=== PATIENT | male | born 1955 | race Caucasian/White ===

== ENCOUNTER 2017-03-12 23:35 | Inpatient (IN) | payer BC ==
[~2017-03-12] VITALS: Ht 177.8 cm; Wt 89.3 kg
[~2017-03-12 23:35] MED LIST: AMLO-114 PO; CARV6.252 PO; DOXA1TAB86 PO; FENO145T26 PO; HYDR25TA4 PO; LISI-792 PO; OMEG350C PO
[2017-03-13] MEDS ORDERED: DOXY50CA26 PO (00:03)
[2017-03-13 01:09] LABS: BASO % 0.1 %; BASO ABS # 0.01 K/uL (0-0.2); COMPLETE YES; EOS % 1.6 %; HEMATOCRIT 31.8 % (42-52); IG% 0.7 %; LYMPH % 17.9 %; MEAN CELL VOLUME 85.9 fL (80-100); MEAN CORPUSCULAR HEMOGLOBIN 30.8 pg (25-34); MEAN CORPUSCULAR HGB CONC 35.8 g/dl (32-36); MEAN PLATELET VOLUME 8.3 fL (7.4-10.4); MONO % 7.3 %; NEUT % 72.4 %; PLATELET COUNT 282 K/uL (130-400); WHITE BLOOD COUNT 10.06 K/uL (4.8-10.8)
[2017-03-13 01:25] LABS: BUN/CREATININE RATIO 15.6 (10-20); CALCIUM 9.2 mg/dl (8.5-10.1); CREATININE 1.4 mg/dl (0.60-1.40); POTASSIUM 3.8 mmol/L (3.5-5.1)
--- NOTE | 2017-03-13 01:28 | EMERGENCY ROOM VISIT NOTE ---
History Report prepared by Carmen: Honey Ariza Under the Supervision of: Dr. Madison Hensley D.O. First contact with patient: 00:39 Chief Complaint: HEADACHE Stated Complaint: CSF LEAK AND HEADACHE History of Present Illness The patient is a 61 year old male who presents to the Emergency Room with complaints of a persistent headache that began today. He currently rates his discomfort as a 5/10 in severity. The patient states that he has a history of a pituitary tumor and has been undergoing radiation. He states as the tumor shrinks, he develops a CSF leak. The patient states that he last had a CSF leak in March, but states that he has had a persistent leak for the past three weeks. He states that he additionally has a history of meningitis. The patient states that today he had an MRI done in [place] to decide whether or not to fix the CSF leak. He states that on his way home he started developing a headache, and his CSF leak stopped. The patient states that he tried to get it to leak, but states that he was unsuccessful. He states that when he had meningitis, his CSF leak sealed off. The patient states that when he presented with meningitis, he experienced fever, chills, nausea, and fatigue, none of which he has been currently experiencing. He states that he was afraid to wait today, due to his history. The patient states that when his CSF leak recently began several weeks ago, he thought it was a cold. He states that the drainage has all been clear, denying any green mucous. The patient denies any cough, sore throat, abdominal pain, decrease in appetite, leg cramping or swelling, or difficulty moving his bowels or urinating. The patient additionally denies any difficulty ambulating or frequently dropping things. Source of History: patient Onset: today Position: head Symptom Intensity: 5/10 Quality: ache Timing: other (persistent) Associated Symptoms: No fevers, No chills, No sorethroat, No cough, No nausea, No abdominal pain, No fatigue Review of Systems See HPI for pertinent positives & negatives. A total of 10 systems reviewed and were otherwise negative. Past Medical & Surgical Medical Problems: (1) Hypertension (2) Hypertriglyceridemia (3) Meningitis Family History Heart disease FATHER Hypertension FATHER MOTHER Social History Smoking Status: Never Smoker Alcohol Use: occasionally Drug Use: none Marital Status: Housing Status: lives with family Occupation Status: employed Current/Historical Medications Scheduled Amlodipine (Norvasc), 10 MG PO DAILY Carvedilol (Coreg), 1 TAB PO BID Doxazosin Mesylate (Doxazosin Mesylate), 8 MG PO DAILY Fenofibrate (Tricor), 145 MG PO DAILY Hydrochlorothiazide (Hctz), 25 MG PO DAILY Lisinopril (Zestril), 20 MG PO BID [place]-3 Fatty Acids ([place]-3), 1,000 MG PO DAILY Scheduled PRN Doxycycline (Monohydrate) (Doxycycline), 50 MG PO DIRECTED PRN for RASH Allergies Coded Allergies: No Known Allergies (Unverified , 03/13/17) Physical Exam Vital Signs Date Time Temp Pulse Resp B/P (MAP) Pulse Ox O2 Delivery O2 Flow Rate FiO2 03/13/17 05:01 56 20 134/68 94 Room Air 03/13/17 03:44 36.9 69 16 112/65 96 Room Air 03/13/17 01:51 36.9 71 16 161/79 96 Room Air 03/12/17 23:44 37.1 96 20 158/88 96 Room Air Physical Exam HEENT: Head - normocephalic and atraumatic Pupils are equal, round, and reactive to light. Extraocular eye muscles are intact, and sclera are anicteric. Nose - moist nasal mucosa without discharge. Mouth - moist buccal mucosa. Oropharynx is nonerythematous and there is no tonsillar exudate or edema noted. Neck: Supple; no JVD, nuchal rigidity, cervical lymphadenopathy, or auscultated bruits. Heart: Regular rate and rhythm. There is a normal S1 and S2 with no murmurs, clicks, or gallops appreciated. Lungs: Clear to auscultation bilaterally with no wheezes, rales, or rhonchi. Abdomen: Soft, completely nontender, nondistended, with good bowel sounds. There are no palpable pulsatile masses or hepatosplenomegaly. There is no guarding, rigidity, or rebound noted. Extremities: No evidence of cyanosis, clubbing, or edema. There are easily palpable peripheral pulses. Skin: warm and dry with good turgor and no rashes. Neuro: The patient is alert and oriented. His exam is nonfocal. He has normal muscle strength in all 4 extremities Medical Decision & Procedures Laboratory Results 03/13/17 00:10 Red Blood Count 3.70, Mean Corpuscular Volume 85.9, Mean Corpuscular Hemoglobin 30.8, Mean Corpuscular Hemoglobin Concent 35.8, Mean Platelet Volume 8.3, Neutrophils (%) (Auto) 72.4, Lymphocytes (%) (Auto) 17.9, Monocytes (%) (Auto) 7.3, Eosinophils (%) (Auto) 1.6, Basophils (%) (Auto) 0.1, Neutrophils # (Auto) 7.29, Lymphocytes # (Auto) 1.80, Monocytes # (Auto) 0.73, Eosinophils # (Auto) 0.16, Basophils # (Auto) 0.01 03/13/17 00:10 Test 03/13/17 00:10 03/13/17 02:36 White Blood Count 10.06 K/uL (4.8-10.8) Red Blood Count 3.70 M/uL (4.7-6.1) Hemoglobin 11.4 g/dL (14.0-18.0) Hematocrit 31.8 % (42-52) Mean Corpuscular Volume 85.9 fL (80-100) Mean Corpuscular Hemoglobin 30.8 pg (25-34) Mean Corpuscular Hemoglobin Concent 35.8 g/dl (32-36) Platelet Count 282 K/uL (130-400) Mean Platelet Volume 8.3 fL (7.4-10.4) Neutrophils (%) (Auto) 72.4 % Lymphocytes (%) (Auto) 17.9 % Monocytes (%) (Auto) 7.3 % Eosinophils (%) (Auto) 1.6 % Basophils (%) (Auto) 0.1 % Neutrophils # (Auto) 7.29 K/uL (1.4-6.5) Lymphocytes # (Auto) 1.80 K/uL (1.2-3.4) Monocytes # (Auto) 0.73 K/uL (0.11-0.59) Eosinophils # (Auto) 0.16 K/uL (0-0.5) Basophils # (Auto) 0.01 K/uL (0-0.2) RDW Standard Deviation 38.1 fL (36.4-46.3) RDW Coefficient of Variation 12.1 % (11.5-14.5) Immature Granulocyte % (Auto) 0.7 % Immature Granulocyte # (Auto) 0.07 K/uL (0.00-0.02) Anion Gap 11.0 mmol/L (3-11) Est Creatinine Clear Calc Drug Dose 60.7 ml/min Estimated GFR () 61.5 Estimated GFR (Non- 53.1 BUN/Creatinine Ratio 15.6 (10-20) Calcium Level 9.2 mg/dl (8.5-10.1) CSF Color COLORLESS CSF Appearance CLOUDY CSF WBC 948 /uL (0-5) CSF RBC < 3000 /uL (0) CSF Xanthrochromic NO XANTHOCHROMIA CSF Cell Count Tube # 4 CSF Mononuclear WBCs % 7.7 % CSF Polynuclear WBCs (%) 92.3 % CSF Chemistry Tube # 2 CSF Glucose 52 mg/dl (40-70) CSF Total Protein 69.1 mg/dl (15.0-45.0) Laboratory results per my review. Medications Administered Medications (Trade) Dose Ordered Sig/Mary Route Start Time Stop Time Status Last Admin Dose Admin Sodium Chloride 1,000 ml @ 999 mls/hr Q1H1M STAT IV 03/13/17 01:45 03/13/17 02:45 DC 03/13/17 01:54 999 MLS/HR Acetaminophen (Tylenol Tab) 1,000 mg NOW STAT PO 03/13/17 01:58 03/13/17 01:59 DC 03/13/17 02:06 1,000 MG Ceftriaxone Sodium (Rocephin Inj) 1 gm NOW STAT IV 03/13/17 04:48 03/13/17 04:50 DC 03/13/17 05:00 1 GM Procedure The patient was treated with Sodium Chloride 1000 ml @ 999 mls/HR IV, Dilaudid Inj 1 mg IV, Tylenol Tab 1000 mg PO, Rocephin Inj 1 gm IV, Vancomycin HCl 1000 mg/Sodium Chloride 270 ml @ 125 mls/hr IV. Lumbar Puncture Indication: headache and CSF leak. Verbal consent was obtained after the risks and benefits were explained, including but not limited to headache, bleeding/clotting, scarring, infection, pain, and bone/joint/nerve damage. At this time, the risks of the procedure are less than the risks of NOT performing the procedure. A time out was taken and the correct patient and site identified. The patient was placed draped over a tray table and the back was prepped with betadine and draped in the standard fashion. The L3 intervertebral space was identified, anesthetized locally with 1 % lidocaine without epinephrine, and the spinal needle was inserted through the skin with the bevel parallel to the dural fibers. The needle was carefully advanced into the lumbar cistern and 4 tubes of clear CSF was obtained. The stylet was replaced and the needle was removed. A bandaid was placed and the patient was placed in the supine position. The patient tolerated the procedure well and there were no complications. ED Course 0050: Past medical records reviewed. The patient was evaluated in room A12B. A complete history and physical exam was performed. An IV lock was initiated and labs are drones above. 0120: The charge nurse spoke to Andressa Bedoya and the patient's MRI will not be read until tomorrow morning. They note that it is a specialized scan and the radiologist will not be in until tomorrow morning to read it. 0145: Ordered Sodium Chloride 1000 ml @ 999 mls/HR IV. 0136: I reevaluated the patient and he is resting. I discussed pros and cons of a lumbar puncture. They are going to think about it for a little bit. I ordered Dilaudid for the patient's headache. 0156: Per nursing staff, the patient has agreed to a lumbar puncture and would like Tylenol instead of Dilaudid. 0158: Ordered Tylenol Tab 1000 mg PO. 0218: I performed the lumbar puncture at this time. See procedure note for further detail. 0448: Ordered Rocephin Ing 1 gm IV, Vancomycin HCl 1000 mg/Sodium Chloride 270 ml @ 125 mls/hr IV. 0451: I reevaluated the patient and he is resting comfortably. I discussed the exam findings with him and I discussed the treatment plan. He verbalized complete understanding and agreement. He will be evaluated for further treatment. 0453: The patients case was discussed with Andressa Quesada. He is going to evaluate the patient for further treatment. Medical Decision The patient is a 61 year old male who presents to the ED with a headache. Differential diagnosis includes CSF leak, meningitis, dehydration, tension headache. Lab interpretation: white blood cell count 10, hemoglobin 10.4, normal platelet count, BUN 22, Creatinine 1.4, glucose 106. CSF Interpretation: cloudy, no xanthochromia, 948 white blood cells, less than 3,000 red blood cells, glucose 52, protein 69. This is a 61-year-old male patient with a history of a pituitary tumor for which she underwent radiation. The patient has a resultant CSF leak. The patient has had a previous episode of meningitis as a result of this. He presents to the emergency department stating that the leak has stopped and he now has a significant headache. The patient had an MRI in [place] to 6 PM in the evening which has not yet been read. I did perform a lumbar puncture which was concerning for meningitis. The patient was started on vancomycin and Rocephin. His head pain was controlled with the Tylenol. Medication Reconcilliation Current Medication List: was personally reviewed by me Blood Pressure Screening Patient's blood pressure: Elevated blood pressure Blood pressure disposition: Elevated BP felt to be situational Consults Time Called: 0450 Consulting Physician: Andressa Quesada Returned Call: [phone] The patients case was discussed with Andressa Quesada. He is going to evaluate the patient for further treatment. Impression Primary Impression: Meningitis Additional Impression: CSF leak Scribe Attestation The scribe's documentation has been prepared under my direction and personally reviewed by me in its entirety. I confirm that the note above accurately reflects all work, treatment, procedures, and medical decision making performed by me. Departure Information Dispostion Being Evaluated By Hospitalist Referrals Giovany King D.O. (PCP) Problem Qualifiers
[2017-03-13] MEDS ORDERED: SODIUM CHLORIDE 0.9% 1000ML 1,000 ML IV STA (01:45)
[2017-03-13] MEDS ORDERED: HYDROmorphone INJ 1 MG/ML SYR IV STA (01:46)
[2017-03-13] MEDS ORDERED: ACETAMINOPHEN 500 MG TAB PO STA (01:58)
[2017-03-13 03:22] LABS: CSF CHEMISTRY TUBE # 2
[2017-03-13 03:28] LABS: CSF TOTAL PROTEIN 69.1 mg/dl (15.0-45.0)
[2017-03-13 04:31] LABS: CSF MONONUC RELAT 7.7 %
[2017-03-13 04:32] LABS: CSF COLOR COLORLESS
[2017-03-13 04:33] LABS: CSF XANTHOCHROMIC NO XANTHOCHROMIA
[2017-03-13 04:42] LABS: CSF APPEARANCE CLOUDY
[2017-03-13] MEDS ORDERED: CEFTRIAXONE SOD INJ 1 GM ADDVIAL IV STA (04:48)
[2017-03-13] MEDS ORDERED: VANCOMYCIN INJ 1,000 MG in SODIUM CHLORIDE 0.9% 250ML 250 ML IV STA (04:48)
--- NOTE | 2017-03-13 06:08 | History and Physical ---
History & Physical Date & Time of Service: Mar 13, 2017 at 06:07 Chief Complaint: Csf Leak And Headache Primary Care Physician: Giovany King D.O. 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 Recent confinement March 2016 for meningitis following CSF leak attributed to tumor shrinkage following radiotherapy. CSF cultures no growth. Patient discharge on IV ceftriaxone course as per ID recommendation. Recent outpatient [facility] [place]ocrinology follow-up visit last December 2016. October 2016 MRI showed decrease in tumor size by about 30%. Neurosurgery follow-up after one year with repeat MRI brain as per note. 2 weeks ago patient noted clear rhinorrhea on the left. similar to CSF leak symptoms in the past. No headaches no fever no chills. [facility] [place] lens generator requested for for collection of fluid for outpatient outpatient beta-2 transferrin testing for CSF. Positive result. [facility] [place] Neurosurgery recommended MRI of the sella and follow-up appointment March 16. Yesterday, left rhinorrhea resolved.. Patient subsequently developed generalized headache symptoms similar to meningitis symptoms from March 2016. At the emergency room, IV vancomycin and ceftriaxone given for possible LEAF STICKER infection after LP done. Headache currently resolved as per patient. Past Medical/Surgical History Medical Problems: (1) Hypertension Status: Chronic (2) Hypertriglyceridemia Status: Chronic Pituitary macroadenoma status post radiation treatment [place] syndrome/hypercortisolism econdary to above as per records Chronic anemia baseline hemoglobin 10-11 Family History Heart disease FATHER Hypertension FATHER MOTHER Social History Smoking Status: Never Smoker Drug Use: none Marital Status: Housing status: lives with family Occupational Status: employed, other (roadwork) Allergies Coded Allergies: No Known Allergies (Unverified , 03/13/17) Home Medications Scheduled Amlodipine (Norvasc), 10 MG PO DAILY Carvedilol (Coreg), 1 TAB PO BID Doxazosin Mesylate (Doxazosin Mesylate), 8 MG PO DAILY Fenofibrate (Tricor), 145 MG PO DAILY Hydrochlorothiazide (Hctz), 25 MG PO DAILY Lisinopril (Zestril), 20 MG PO BID [place]-3 Fatty Acids ([place]-3), 1,000 MG PO DAILY Scheduled PRN Doxycycline (Monohydrate) (Doxycycline), 50 MG PO DIRECTED PRN for RASH Review of Systems As per history of present illness, all other ROS negative Physical Exam Vital Signs Date Time Temp Pulse Resp B/P (MAP) Pulse Ox O2 Delivery O2 Flow Rate FiO2 03/13/17 05:01 56 20 134/68 94 Room Air 03/13/17 03:44 36.9 69 16 112/65 96 Room Air 03/13/17 01:51 36.9 71 16 161/79 96 Room Air 03/12/17 23:44 37.1 96 20 158/88 96 Room Air General Appearance: + pertinent finding (psychiatric anxious, no respiratory distress) Eyes: + pertinent finding (pale palpebral conjunctivae, dry buccal mucosa) Neck: supple, + pertinent finding (short) Respiratory/Chest: lungs clear Cardiovascular: regular rate, rhythm Abdomen/GI: soft Extremities/Musculoskelatal: non-tender Neurologic/Psych: alert, + pertinent finding Skin: + pallor Diagnostics Laboratory Results Results Past 24 Hours Test 03/13/17 00:10 03/13/17 02:36 Range/Units White Blood Count 10.06 4.8-10.8 K/uL Red Blood Count 3.70 4.7-6.1 M/uL Hemoglobin 11.4 14.0-18.0 g/dL Hematocrit 31.8 42-52 % Mean Corpuscular Volume 85.9 80-100 fL Mean Corpuscular Hemoglobin 30.8 25-34 pg Mean Corpuscular Hemoglobin Concent 35.8 32-36 g/dl Platelet Count 282 130-400 K/uL Mean Platelet Volume 8.3 7.4-10.4 fL Neutrophils (%) (Auto) 72.4 % Lymphocytes (%) (Auto) 17.9 % Monocytes (%) (Auto) 7.3 % Eosinophils (%) (Auto) 1.6 % Basophils (%) (Auto) 0.1 % Neutrophils # (Auto) 7.29 1.4-6.5 K/uL Lymphocytes # (Auto) 1.80 1.2-3.4 K/uL Monocytes # (Auto) 0.73 0.11-0.59 K/uL Eosinophils # (Auto) 0.16 0-0.5 K/uL Basophils # (Auto) 0.01 0-0.2 K/uL RDW Standard Deviation 38.1 36.4-46.3 fL RDW Coefficient of Variation 12.1 11.5-14.5 % Immature Granulocyte % (Auto) 0.7 % Immature Granulocyte # (Auto) 0.07 0.00-0.02 K/uL Sodium Level 134 136-145 mmol/L Potassium Level 3.8 3.5-5.1 mmol/L Chloride Level 102 98-107 mmol/L Carbon Dioxide Level 21 21-32 mmol/L Anion Gap 11.0 3-11 mmol/L Blood Urea Nitrogen 22 7-18 mg/dl Creatinine 1.40 0.60-1.40 mg/dl Est Creatinine Clear Calc Drug Dose 60.7 ml/min Estimated GFR () 61.5 Estimated GFR (Non- 53.1 BUN/Creatinine Ratio 15.6 10-20 Random Glucose 106 70-99 mg/dl Calcium Level 9.2 8.5-10.1 mg/dl CSF Color COLORLESS CSF Appearance CLOUDY CSF WBC 948 0-5 /uL CSF RBC < 3000 0 /uL CSF Xanthrochromic NO XANTHOCHROMIA CSF Cell Count Tube # 4 CSF Mononuclear WBCs % 7.7 % CSF Polynuclear WBCs (%) 92.3 % CSF Chemistry Tube # 2 CSF Glucose 52 40-70 mg/dl CSF Total Protein 69.1 15.0-45.0 mg/dl Microbiology Results 03/13/17 Gram Stain - Preliminary, Resulted 03/13/17 CSF Culture, Resulted Pending Diagnostic Radiology CT head sinusitis Impression Assessment and Plan AP Recurrent meningitis Recent CSF leak History of pituitary tumor (w/ secondary hypercortisolism) status post radiation No sepsis Hypertension, stable Chronic anemia, hemoglobin at baseline GMF Follow CSF cultures Vanco, Ceftriaxone for now; Decadron (until pneumococcal meningitis definitively ruled out) ID consult Re possible LEAF STICKER infection Follow official results of recent MRI brain done at [facility] [place] DVT prophylaxis SCDs Re : Brain tumor Full code VTE Prophylaxis VTE Risk Assessment Done? Y/N: Yes Risk Level: Moderate
[2017-03-13] MEDS ORDERED: IBUPROFEN 200 MG TAB PO PRN (06:15)
[2017-03-13] MEDS ORDERED: ACETAMINOPHEN 325 MG TAB PO PRN (06:15)
[2017-03-13] MEDS ORDERED: MoRPHine SULFATE 4 MG/ML 1 ML CARP\\VIAL IV PRN (06:15)
[2017-03-13] MEDS ORDERED: ONDANSETRON INJ 2 MG/ML 2 ML VIAL IV PRN (06:15)
[2017-03-13] MEDS ORDERED: KETOROLAC TROMETHAMINE 30 MG/ML VIAL IV PRN (06:15)
[2017-03-13] MEDS ORDERED: OXYCODONE/ACETAMINOPHEN 5-325 TAB PO PRN (06:15)
[2017-03-13] MEDS ORDERED: SODIUM CHLORIDE 0.9% 1000ML 1,000 ML IV ONE (06:15)
[2017-03-13 06:32] VITALS: BP 131/68; PULSE 54; TEMP 36.6; O2SAT 96; Ht 177.8 cm; Wt 89.3 kg
--- NOTE | 2017-03-13 07:00 | DIAGNOSTIC IMAGING REPORT ---
HEAD WITHOUT CONTRAST (CT) CT DOSE: 614.27 mGy.cm HISTORY: Mental status change ford TECHNIQUE: Multiaxial CT images of the head were performed without the use of intravenous contrast. A dose lowering technique was utilized adhering to the principles of ALARA. Comparison: 04/11/2016 Findings: Moderate mucosal thickening sphenoid air cells The calvarium and skull base are intact. The ventricles and sulci are within normal limits. There is no mass, hematoma, midline shift, or acute infarct. Impression: No acute intracranial abnormality. Moderate mucosal thickening sphenoid air cells The above report was generated using voice recognition software. It may contain grammatical, syntax or spelling errors. Electronically signed by: Trey Anderson M.D. 03/13/2017 6:59 AM Dictated Date/Time: 03/13/2017 6:57 AM
[2017-03-13 07:20] VITALS: BP 120/68; PULSE 54; TEMP 37; O2SAT 95
[2017-03-13] MEDS: FENOFIBRATE 145 MG TAB PO SCH (08:02)
[2017-03-13] MEDS: DEXAMETHASONE INJ 10 MG in SYRINGE 0 ML IV SCH ×3 (08:02→19:11)
[2017-03-13] MEDS: CARVEDILOL 6.25 MG TAB PO SCH ×2 (08:03→21:46)
[2017-03-13] MEDS: LISINOPRIL 20 MG TAB PO SCH ×2 (08:03→21:46)
[2017-03-13] MEDS ORDERED: CONSULT PHARMACY SCH (09:00)
[2017-03-13] MEDS ORDERED: VANCOMYCIN CONSULT ACTIVE PRN (10:00)
[2017-03-13] MEDS ORDERED: CEFTRIAXONE PHARMACY CONSULT IN PROGRESS PRN (10:00)
[2017-03-13] MEDS ORDERED: CEFTRIAXONE SOD INJ 1000 MG in DEXTROSE 5% 50ML IV ONE (10:15)
[2017-03-13] MEDS ORDERED: VANCOMYCIN INJ 1,500 MG in SODIUM CHLORIDE 0.9% 500ML 500 ML IV ONE (10:30)
--- NOTE | 2017-03-13 10:57 | Progress Note ---
Internal Med Progress Note Date of Service: Mar 13, 2017. Provider Documentation: SUBJECTIVE: Patient is feeling much better today. Headache has improved,. No neck rigidity No more CSF leak. No fever, chills, localized weakness, vision problems. OBJECTIVE: Vital Signs-as noted below Exam: General-AAOX3, no distress Neck-Supple, No rigidity Lungs-AEBE, no wheezing, rales Heart-S1, S2 normal , no murmurs Extremities-No edema Neuro-AAOX3, Power - 5/5 all extremities, Cranial nerves intact, no deficits Lab data as noted below. ASSESSMENT & PLAN: A 60-year-old male with history of pituitary macroadenoma status post radiation therapy in 2014, hypertension, CKD stage III presenting with headache. Patient was diagnosed with pituitary macroadenoma in 2013, had radiation rx in 2014. In March 2016, had CSF leak and later meningitis for which he was admitted at [facility]. Was treated with IV antibiotics x 10 days. Did well since than till few weeks ago when he again developed CSF leak. Did get tests done at [facility] which confirmed it was CSF leak and had MRI done yesterday, results still pending. Plan is to follow up with neurosurgery Dr Zacarias Briseno on Thursday to decide about further plan on basis of results of MRI. Yesterday got headaches and concerned about meningitis, thus came to ER for further evaluation POSSIBLE BACTERIAL MENINGITIS IN SETTING OF PITUITARY MACROADENOMA S/P Radiation-->shrinkage--> CSF leak. -CSF Interpretation: cloudy, no xanthochromia, 948 white blood cells, less than 3,000 red blood cells, glucose 52, protein 69. -Headache + improved, but no nuchal rigidity, fever, chills. -Empirically on IV Vancomycin, Rocephin, IV Dexamethasone 10 mg q 6 hours -Follow up CSF cultures, MRI Brain results (done [place] [facility] [place]) -ID on board. Discussed case with ROLAND Shaw PITUITARY MACROADENOMA: -Diagnosed in 2013, S/P Radiation in 2014 -Has had CSF leaks few times, last one few weeks ago which was confirmed to be CSF after testing. -MRI brain done at [facility] on 03/12- follow up results -Plan is to follow up with Dr. Zacarias Briseno (Neurosurgery at [facility]) on thursday re: Recurrent CSF leak and further treatment for macroadenoma) HTN- -Continue with amlodipine, carvedilol and lisinopril, Doxazosin, HCTZ CKD III -Stable HX OF AM CODE STATUS: FULL CODE DISPOSITION Expected dc home when stable Follow up with Dr Zacarias Briseno (neurosurgery ) on thursday (at [facility]) Vital Signs: Date Time Temp Pulse Resp B/P (MAP) Pulse Ox O2 Delivery O2 Flow Rate FiO2 03/13/17 08:15 Room Air 03/13/17 07:20 37.0 54 18 120/68 (85) 95 Room Air 03/13/17 06:32 36.6 54 18 131/68 96 Room Air 03/13/17 06:07 58 20 128/70 94 03/13/17 05:01 56 20 134/68 94 Room Air 03/13/17 03:44 36.9 69 16 112/65 96 Room Air 03/13/17 01:51 36.9 71 16 161/79 96 Room Air 03/12/17 23:44 37.1 96 20 158/88 96 Room Air Lab Results: Results Past 24 Hours Test 03/13/17 00:10 03/13/17 02:36 03/13/17 07:52 Range/Units White Blood Count 10.06 4.8-10.8 K/uL Red Blood Count 3.70 4.7-6.1 M/uL Hemoglobin 11.4 14.0-18.0 g/dL Hematocrit 31.8 42-52 % Mean Corpuscular Volume 85.9 80-100 fL Mean Corpuscular Hemoglobin 30.8 25-34 pg Mean Corpuscular Hemoglobin Concent 35.8 32-36 g/dl Platelet Count 282 130-400 K/uL Mean Platelet Volume 8.3 7.4-10.4 fL Neutrophils (%) (Auto) 72.4 % Lymphocytes (%) (Auto) 17.9 % Monocytes (%) (Auto) 7.3 % Eosinophils (%) (Auto) 1.6 % Basophils (%) (Auto) 0.1 % Neutrophils # (Auto) 7.29 1.4-6.5 K/uL Lymphocytes # (Auto) 1.80 1.2-3.4 K/uL Monocytes # (Auto) 0.73 0.11-0.59 K/uL Eosinophils # (Auto) 0.16 0-0.5 K/uL Basophils # (Auto) 0.01 0-0.2 K/uL RDW Standard Deviation 38.1 36.4-46.3 fL RDW Coefficient of Variation 12.1 11.5-14.5 % Immature Granulocyte % (Auto) 0.7 % Immature Granulocyte # (Auto) 0.07 0.00-0.02 K/uL Sodium Level 134 136-145 mmol/L Potassium Level 3.8 3.5-5.1 mmol/L Chloride Level 102 98-107 mmol/L Carbon Dioxide Level 21 21-32 mmol/L Anion Gap 11.0 3-11 mmol/L Blood Urea Nitrogen 22 7-18 mg/dl Creatinine 1.40 0.60-1.40 mg/dl Est Creatinine Clear Calc Drug Dose 60.7 ml/min Estimated GFR () 61.5 Estimated GFR (Non- 53.1 BUN/Creatinine Ratio 15.6 10-20 Random Glucose 106 70-99 mg/dl Calcium Level 9.2 8.5-10.1 mg/dl CSF Color COLORLESS CSF Appearance CLOUDY CSF WBC 948 0-5 /uL CSF RBC < 3000 0 /uL CSF Xanthrochromic NO XANTHOCHROMIA CSF Cell Count Tube # 4 CSF Mononuclear WBCs % 7.7 % CSF Polynuclear WBCs (%) 92.3 % CSF Chemistry Tube # 2 CSF Glucose 52 40-70 mg/dl CSF Total Protein 69.1 15.0-45.0 mg/dl Hepatitis C Antibody Screen NEG NEG Microbiology Results 03/13/17 Gram Stain - Final, Resulted 03/13/17 CSF Culture, Resulted Pending
[2017-03-13 11:24] VITALS: BP 120/71; PULSE 50
[2017-03-13] MEDS: AMLODIPINE BESYLATE 5 MG TAB PO SCH (11:26)
--- NOTE | 2017-03-13 11:49 | Medical Consult ---
Consultation Date of Consultation: Mar 13, 2017. Attending Physician: Pooja. Lundberg S Reason for Consultation: Meningitis History of Present Illness Patient is a 61-year-old male who presented to the emergency department with complaints of mild headache. The patient has an extensive medical history. The patient was previously diagnosed with a pituitary tumor. He has been receiving radiation treatment for his pituitary tumor. When his tumor began to shrink, he developed a CSF leak. Previously, the patient did have a CSF leak in March at which time he developed meningitis. Those records were reviewed today. He was seen by Dr. Ruiz at that time. His CSF analysis appear to be bacterial in nature, but his culture did not grow any bacteria. He was treated with IV ceftriaxone for 10 days at that time. Upon current admission, the patient had another lumbar puncture completed. His CSF showed 948 white blood cells, mildly elevated protein 69, and normal glucose level. His white blood cell count was 10.06 on admission. His creatinine was 1.40. The patient was started on IV ceftriaxone and vancomycin in the emergency department. He did have a CT scan of the head which showed moderate mucosal thickening of the sphenoid air cells. Otherwise no acute abnormality. The patient states that other then his mild headache, he was not having any other symptoms. He denies nausea, vomiting, diarrhea, shortness of breath, cough, chest pain, or peripheral edema. He states that he has had no sick contacts recently. He has no at home. He has not traveled recently. I did discuss this patient with Dr. Lundberg. Past Medical/Surgical History Medical Problems: (1) Bacterial meningitis Status: Acute (2) CSF leak Status: Acute Medical Problems: (1) Hypertension (2) Hypertriglyceridemia (3) Meningitis (4) Pituitary tumor receiving/ s/p radiation Family History Heart disease FATHER Hypertension FATHER MOTHER Noncontributory Social History Smoking Status: Never Smoker Drug Use: none Marital Status: Housing Status: lives with family Occupation Status: employed Allergies Coded Allergies: No Known Allergies (Unverified , 03/13/17) Home Medications Reported Home Medications Medications Dose Route/Sig Max Daily Dose Days Date Category Doxycycline (Doxycycline (Monohydrate)) 50 Mg Cap 50 Mg PO DIRECTED PRN 03/13/17 Reported Coreg (Carvedilol) 6.25 Mg Tab 1 Tab PO BID 90 02/08/16 Reported Norvasc (Amlodipine Besylate) 10 Mg Tab 10 Mg PO DAILY 08/09/15 Reported Hctz (Hydrochlorothiazide) 25 Mg Tab 25 Mg PO DAILY 03/17/14 Reported Zestril (Lisinopril) 20 Mg Tab 20 Mg PO BID 03/17/14 Reported [place]-3 ([place]-3 Fatty Acids) 1 Cap Cap 1,000 Mg PO DAILY 03/17/14 Reported Tricor (Fenofibrate) 145 Mg Tab 145 Mg PO DAILY 03/17/14 Reported Doxazosin Mesylate 4 Mg Tab 8 Mg PO DAILY 03/17/14 Reported Current Inpatient Medications Current Inpatient Medications Medications (Trade) Dose Ordered Sig/Mary Route Start Time Stop Time Status Last Admin Dose Admin Dexamethasone Sodium Phosphate 10 mg/Syringe 2.5 ml @ 1 mls/min Q6H IV 03/13/17 07:00 04/12/17 06:59 03/13/17 08:02 1 MLS/MIN Acetaminophen (Tylenol Tab) 650 mg Q4H PRN PO 03/13/17 06:15 04/12/17 06:14 Ketorolac Tromethamine (Toradol Inj) 30 mg Q6H PRN IV 03/13/17 06:15 03/18/17 06:14 Ibuprofen (Advil Tab) 400 mg Q6H PRN PO 03/13/17 06:15 04/12/17 06:14 Oxycodone/ Acetaminophen (Percocet 5-325mg Tab) 1 tab Q6H PRN PO 03/13/17 06:15 03/27/17 06:14 Morphine Sulfate (MoRPHine SULFATE INJ) 4 mg Q3H PRN IV 03/13/17 06:15 03/27/17 06:14 Sodium Chloride 1,000 ml @ 75 mls/hr [id number] ONCE IV 03/13/17 06:15 03/13/17 19:34 03/13/17 08:09 75 MLS/HR Amlodipine Besylate (Norvasc Tab) 10 mg DAILY PO 03/13/17 12:00 04/12/17 11:59 Carvedilol (Coreg Tab) 6.25 mg BID PO 03/13/17 09:00 04/12/17 08:59 03/13/17 08:03 6.25 MG Doxazosin Mesylate (Cardura Tab) 8 mg HS PO 03/13/17 21:00 04/12/17 20:59 Fenofibrate (Tricor Tab) 145 mg DAILY PO 03/13/17 09:00 04/12/17 08:59 03/13/17 08:02 145 MG Lisinopril (Zestril Tab) 20 mg BID PO 03/13/17 09:00 04/12/17 08:59 03/13/17 08:03 20 MG Ondansetron HCl (Zofran Inj) 4 mg Q6H PRN IV 03/13/17 06:15 04/12/17 06:14 Ceftriaxone Sodium 2000 mg/ Dextrose 70 ml @ 140 mls/hr Q12H IV 03/13/17 22:00 03/23/17 21:59 Vancomycin HCl (Consult) 1 ea UD PRN N/A 03/13/17 10:00 04/12/17 09:59 Miscellaneous Information 1 ea UD PRN N/A 03/13/17 10:00 04/12/17 09:59 Vancomycin HCl 1500 mg/Sodium Chloride 530 ml @ 200 mls/hr NOW ONCE IV 03/13/17 10:30 03/13/17 13:08 Vancomycin HCl 1400 mg/Sodium Chloride 528 ml @ 200 mls/hr Q10H IV 03/13/17 23:00 03/23/17 22:59 Review of Systems Constitutional: + problem reported (mild headache), No fever, No chills, No sweats Eyes: No worsening of vision ENT: No hearing loss, No sore throat Respiratory: No cough, No shortness of breath Cardiovascular: No chest pain, No palpitations Abdomen: No pain, No nausea, No vomiting, No diarrhea Musculoskeletal: No joint pain, No muscle pain Genitourinary - Male: No dysuria Neurologic: No numbness/tingling Integumentary: No rash, No itch, No new/changing skin lesions Physical Exam Date Time Temp Pulse Resp B/P (MAP) Pulse Ox O2 Delivery O2 Flow Rate FiO2 03/13/17 08:15 Room Air 03/13/17 07:20 37.0 54 18 120/68 (85) 95 Room Air 03/13/17 06:32 36.6 54 18 131/68 96 Room Air 03/13/17 06:07 58 20 128/70 94 03/13/17 05:01 56 20 134/68 94 Room Air 03/13/17 03:44 36.9 69 16 112/65 96 Room Air 03/13/17 01:51 36.9 71 16 161/79 96 Room Air 03/12/17 23:44 37.1 96 20 158/88 96 Room Air General Appearance: WD/WN, no apparent distress Head: normocephalic, atraumatic Eyes: normal inspection, sclerae normal ENT: hearing grossly normal Neck: supple, trachea midline Respiratory/Chest: chest non-tender, normal breath sounds, no respiratory distress, no accessory muscle use, + crackles (very fine crackles b/l bases) Cardiovascular: regular rate, rhythm, no murmur Abdomen/GI: normal bowel sounds, non tender, soft Back: normal inspection Extremities/Musculoskelatal: normal range of motion Neurologic/Psych: alert, normal mood/affect, oriented x 3 Skin: normal color, warm/dry, no rash Laboratory Results HEAD WITHOUT CONTRAST (CT) CT DOSE: 614.27 mGy.cm HISTORY: Mental status change ford TECHNIQUE: Multiaxial CT images of the head were performed without the use of intravenous contrast. A dose lowering technique was utilized adhering to the principles of ALARA. Comparison: 04/11/2016 Findings: Moderate mucosal thickening sphenoid air cells The calvarium and skull base are intact. The ventricles and sulci are within normal limits. There is no mass, hematoma, midline shift, or acute infarct. Impression: No acute intracranial abnormality. Moderate mucosal thickening sphenoid air cells RUN DATE: 03/13/17 [facility] LAB PAGE 1 RUN TIME: 6674 Specimen Inquiry PATIENT: GOPI ZAMBRANO LOC: [id number] U # : [id number] AGE/SX: 61/M ROOM: [facility] REG : 03/13/[address]: Pooja. Lundberg S : 1955 BED: 1 DIS : STATUS: ADM IN TLOC: SPEC #: [id number] PETERSON: 03/13/17 STATUS: RES REQ #: [id number] RECD: 03/13/[address]: Vicente Lim PA- C SOURCE: CSF ENTR: 03/13/[address]: Madison Hensley D.O. SPDESC: Giovany King D.O. ORDERED: CSF CULT/SMR COMMENTS: Comments to Hydroelectric Production Manager TUBE # 3 TUBE # TO USE FOR SPINAL FLUID CELL CULTURE= 3 Procedure Result Verified Site GRAM STAIN Final 03/13/17-0756 RESULT NO ORGANISMS SEEN MANY WBCs SEEN Phoned results to ANGIE ESCUDERO on 03/13/17 at 0434 by Chloe Ribera. Results were verbalized back to BERKLEY. CSF CULTURE PENDING Last 24 Hours Test 03/13/17 00:10 03/13/17 02:36 03/13/17 07:52 White Blood Count 10.06 K/uL Red Blood Count 3.70 M/uL Hemoglobin 11.4 g/dL Hematocrit 31.8 % Mean Corpuscular Volume 85.9 fL Mean Corpuscular Hemoglobin 30.8 pg Mean Corpuscular Hemoglobin Concent 35.8 g/dl Platelet Count 282 K/uL Mean Platelet Volume 8.3 fL Neutrophils (%) (Auto) 72.4 % Lymphocytes (%) (Auto) 17.9 % Monocytes (%) (Auto) 7.3 % Eosinophils (%) (Auto) 1.6 % Basophils (%) (Auto) 0.1 % Neutrophils # (Auto) 7.29 K/uL Lymphocytes # (Auto) 1.80 K/uL Monocytes # (Auto) 0.73 K/uL Eosinophils # (Auto) 0.16 K/uL Basophils # (Auto) 0.01 K/uL RDW Standard Deviation 38.1 fL RDW Coefficient of Variation 12.1 % Immature Granulocyte % (Auto) 0.7 % Immature Granulocyte # (Auto) 0.07 K/uL Sodium Level 134 mmol/L Potassium Level 3.8 mmol/L Chloride Level 102 mmol/L Carbon Dioxide Level 21 mmol/L Anion Gap 11.0 mmol/L Blood Urea Nitrogen 22 mg/dl Creatinine 1.40 mg/dl Est Creatinine Clear Calc Drug Dose 60.7 ml/min Estimated GFR () 61.5 Estimated GFR (Non- 53.1 BUN/Creatinine Ratio 15.6 Random Glucose 106 mg/dl Calcium Level 9.2 mg/dl CSF Color COLORLESS CSF Appearance CLOUDY CSF WBC 948 /uL CSF RBC < 3000 /uL CSF Xanthrochromic NO XANTHOCHROMIA CSF Cell Count Tube # 4 CSF Mononuclear WBCs % 7.7 % CSF Polynuclear WBCs (%) 92.3 % CSF Chemistry Tube # 2 CSF Glucose 52 mg/dl CSF Total Protein 69.1 mg/dl Hepatitis C Antibody Screen NEG Assessment & Plan Patient with CSF leak, pituitary tumor s/p radiation, and probable meningitis. It seems likely that the patient has viral meningitis with his very mild symptoms, but would recommend continuing droplet precautions for 24 from first dose of abx therapy and continuing IV Vancomycin and Ceftriaxone pending culture result. If culture is negative, likely can discontinue IV abx therapy. Patient has appt Thursday in [place] for MRI follow up regarding CSF leak. If he would decompensate during current admission, low threshold for transfer to [place]. We will follow. case reviewed and agree with above assessment.
--- NOTE | 2017-03-13 13:40 | Pharmacy Progress Note ---
Pharmacy Abx Initial Consult Date of Service Mar 13, 2017. Pharmacy Dosing Scope Date of Consult: 03/13/17 Consultation requested by: Dr. Garcia Pharmacy is consulted to initiate Vancomycin IV & Ceftriaxone IV dosing therapy , order appropriate labs and adjust drug dose/frequency. Subjective The patient is a 61 year old male admitted on Mar 13, 2017 at 05:40. * Patient with CSF leak, pituitary tumor s/p radiation, and probable meningitis Objective Height (Feet): 5 Height (Inches): 10.00 Weight (Kilograms): 89.300 Vital Signs (Past 12Hrs) Vital Signs Past 12 Hours Date Time Temp Pulse Resp B/P (MAP) Pulse Ox O2 Delivery O2 Flow Rate FiO2 03/13/17 11:24 50 120/71 (87) 03/13/17 08:15 Room Air 03/13/17 07:20 37.0 54 18 120/68 (85) 95 Room Air 03/13/17 06:32 36.6 54 18 131/68 96 Room Air 03/13/17 06:07 58 20 128/70 94 03/13/17 05:01 56 20 134/68 94 Room Air 03/13/17 03:44 36.9 69 16 112/65 96 Room Air 03/13/17 01:51 36.9 71 16 161/79 96 Room Air Lab Results (24Hrs) Laboratory Tests (24 Hours) Test 03/13/17 00:10 White Blood Count 10.06 K/uL (4.8-10.8) Red Blood Count 3.70 M/uL (4.7-6.1) L Hemoglobin 11.4 g/dL (14.0-18.0) L Hematocrit 31.8 % (42-52) L Mean Corpuscular Volume 85.9 fL (80-100) Mean Corpuscular Hemoglobin 30.8 pg (25-34) Mean Corpuscular Hemoglobin Concent 35.8 g/dl (32-36) Platelet Count 282 K/uL (130-400) Mean Platelet Volume 8.3 fL (7.4-10.4) Neutrophils (%) (Auto) 72.4 % Lymphocytes (%) (Auto) 17.9 % Monocytes (%) (Auto) 7.3 % Eosinophils (%) (Auto) 1.6 % Basophils (%) (Auto) 0.1 % Neutrophils # (Auto) 7.29 K/uL (1.4-6.5) H Lymphocytes # (Auto) 1.80 K/uL (1.2-3.4) Monocytes # (Auto) 0.73 K/uL (0.11-0.59) H Eosinophils # (Auto) 0.16 K/uL (0-0.5) Basophils # (Auto) 0.01 K/uL (0-0.2) Micro Results Date/Time Source Procedure Growth Status 03/13/17 02:36 Cerebral Spinal Fluid Gram Stain - Final Resulted 03/13/17 02:36 Cerebral Spinal Fluid CSF Culture Pending Resulted Risk Factors for Resistance * Immunocompromised (chronic steroid therapy, chemotherapy, immunomodulators) Assessment & Plan Assessment 61 year old male patient with CSF leak, pituitary tumor s/p radiation, and probable meningitis. CSF cultures are pending. Plan Vancomycin for treatment of probable meningitis. Vancomycin IV * Loading dose: 2500 mg (28 mg/kg). Vancomycin 1 gram given in the ED 03/13 @ 0537. Additional Vancomycin 1500mg given 03/13 @1030 to complete the loading dose. * Maintenance dose: 1400 mg IV (15.6 mg/kg) every 10 hours. * Goal trough level for meningitis : 15 to 20 mcg/mL * Trough/Random level ordered for 03/15/17 @ 0430 Ceftriaxone IV * Initial dose of ceftriaxone 1 gram given in the ED @ 0500. Additional ceftriaxone 1 gram given 03/13 @ 1000. * Maintenance dose of ceftriaxone 2 grams IV q 12 hrs to begin 03/13 @ 2200 Pharmacy will continue to follow and will adjust dose/frequency as necessary. Thank you.
[2017-03-13 15:05] VITALS: BP 117/74; PULSE 72; TEMP 36.6; O2SAT 95
[2017-03-13] MEDS ORDERED: DOXAZosin MESYLATE TAB 4 MG TAB PO SCH (21:00)
[2017-03-13] MEDS: CEFTRIAXONE SOD INJ 2000 MG in DEXTROSE 5% 50ML IV SCH (21:24)
[2017-03-13 23:08] VITALS: BP 126/59; PULSE 58; TEMP 36.6; O2SAT 94
[2017-03-13] MEDS: VANCOMYCIN INJ 1,400 MG in SODIUM CHLORIDE 0.9% 500ML 500 ML IV SCH (23:23)
[2017-03-14] MEDS: DEXAMETHASONE INJ 10 MG in SYRINGE 0 ML IV SCH ×3 (01:21→13:10)
[2017-03-14 07:15] LABS: MEAN CELL VOLUME 85.7 fL (80-100); MEAN CORPUSCULAR HEMOGLOBIN 30.4 pg (25-34); MEAN CORPUSCULAR HGB CONC 35.5 g/dl (32-36); MEAN PLATELET VOLUME 8.4 fL (7.4-10.4); PLATELET COUNT 244 K/uL (130-400); RED BLOOD COUNT 3.85 M/uL (4.7-6.1); WHITE BLOOD COUNT 16.15 K/uL (4.8-10.8)
[2017-03-14 07:42] VITALS: BP 139/73; PULSE 67; TEMP 36.7; O2SAT 95
[2017-03-14 07:46] LABS: BUN/CREATININE RATIO 15.7 (10-20); CALCIUM 8.8 mg/dl (8.5-10.1); CREATININE 1.2 mg/dl (0.60-1.40); POTASSIUM 3.9 mmol/L (3.5-5.1)
[2017-03-14 08:00] VITALS: O2SAT 95
[2017-03-14] MEDS: LISINOPRIL 20 MG TAB PO SCH (08:45)
[2017-03-14] MEDS: CARVEDILOL 6.25 MG TAB PO SCH (08:45)
[2017-03-14] MEDS: VANCOMYCIN INJ 1,400 MG in SODIUM CHLORIDE 0.9% 500ML 500 ML IV SCH (09:01)
[2017-03-14] MEDS: AMLODIPINE BESYLATE 5 MG TAB PO SCH (09:26)
[2017-03-14] MEDS: FENOFIBRATE 145 MG TAB PO SCH (09:26)
--- NOTE | 2017-03-14 11:20 | Progress Note ---
Internal Med Progress Note Date of Service: Mar 14, 2017. Provider Documentation: SUBJECTIVE: Patient is feeling very well and eager to be discharged. Headache has resolved. No neck rigidity No more CSF leak. No fever, chills, localized weakness, vision problems. OBJECTIVE: Vital Signs-as noted below Exam: General-AAOX3, no distress Neck-Supple, No rigidity Lungs-AEBE, no wheezing, rales Heart-S1, S2 normal , no murmurs Extremities-No edema Neuro-AAOX3, Power - 5/5 all extremities, Cranial nerves intact, no deficits Lab data as noted below. ASSESSMENT & PLAN: A 60-year-old male with history of pituitary macroadenoma status post radiation therapy in 2014, hypertension, CKD stage III presenting with headache. Patient was diagnosed with pituitary macroadenoma in 2013, had radiation rx in 2014. In March 2016, had CSF leak and later meningitis for which he was admitted at [facility]. Was treated with IV antibiotics x 10 days. Did well since than till few weeks ago when he again developed CSF leak. Did get tests done at [facility] which confirmed it was CSF leak and had MRI done yesterday, results still pending. Plan is to follow up with neurosurgery Dr Zacarias Briseno on Thursday to decide about further plan on basis of results of MRI. Yesterday got headaches and concerned about meningitis, thus came to ER for further evaluation POSSIBLE BACTERIAL MENINGITIS IN SETTING OF PITUITARY MACROADENOMA S/P Radiation-->shrinkage--> CSF leak. -CSF Interpretation: cloudy, no xanthochromia, 948 white blood cells, less than 3,000 red blood cells, glucose 52, protein 69. -Headache + improved, but no nuchal rigidity, fever, chills. -Possibly viral meningitis ? -Empirically on IV Vancomycin, Rocephin, IV Dexamethasone 10 mg q 6 hours (Day 2 ) -CSF cultures- no organisms found, pending final cultures, MRI Brain results ( done at [facility] [place] New finding of pneumocephalus involving sella turcica, rt cavernous sinus, and supracellar cistern, consistent with known CSF leak involving floor of sella turcica/sphenoid roof. Grossly stable known residual pituitary macroadenoma invading right cavernous sinus, ant and post clinoid processess, and lt sphenoid sinus (asymmetrically large lt sphenoid sinus due to eccentric insertion of intersphenoid sinus septum over right carotid canal). -ID on board. Discussed case with ROLAND Shaw PITUITARY MACROADENOMA: -Diagnosed in 2013, S/P Radiation in 2014 -Has had CSF leaks few times, last one few weeks ago which was confirmed to be CSF after testing. -MRI brain done at [facility] on 03/12- results as above. stable pituitary macroadenoma -Plan is to follow up with Dr. Zacarias Briseno (Neurosurgery at [facility]) on thursday re: Recurrent CSF leak and further treatment for macroadenoma) HTN- -Continue with amlodipine, carvedilol and lisinopril, Doxazosin, HCTZ CKD III -Stable CODE STATUS: FULL CODE DISPOSITION Expected dc home, likely today evening or tomorrow so he can follow up with neurosurgery on Thursday Follow up with Dr Zacarias Briseno (neurosurgery ) on thursday (at [facility]) Vital Signs: Date Time Temp Pulse Resp B/P (MAP) Pulse Ox O2 Delivery O2 Flow Rate FiO2 03/14/17 08:00 95 Room Air 03/14/17 07:42 36.7 67 16 139/73 (95) 95 Room Air 03/14/17 00:00 Room Air 03/13/17 23:08 36.6 58 16 126/59 (81) 94 Room Air 03/13/17 16:10 Room Air 03/13/17 15:05 36.6 72 16 117/74 (88) 95 Room Air 03/13/17 11:24 50 120/71 (87) Lab Results: Results Past 24 Hours Test 03/14/17 06:38 03/14/17 06:40 Range/Units White Blood Count 16.15 4.8-10.8 K/uL Red Blood Count 3.85 4.7-6.1 M/uL Hemoglobin 11.7 14.0-18.0 g/dL Hematocrit 33.0 42-52 % Mean Corpuscular Volume 85.7 80-100 fL Mean Corpuscular Hemoglobin 30.4 25-34 pg Mean Corpuscular Hemoglobin Concent 35.5 32-36 g/dl RDW Standard Deviation 38.2 36.4-46.3 fL RDW Coefficient of Variation 12.2 11.5-14.5 % Platelet Count 244 130-400 K/uL Mean Platelet Volume 8.4 7.4-10.4 fL Sodium Level 138 136-145 mmol/L Potassium Level 3.9 3.5-5.1 mmol/L Chloride Level 110 98-107 mmol/L Carbon Dioxide Level 19 21-32 mmol/L Anion Gap 9.0 3-11 mmol/L Blood Urea Nitrogen 19 7-18 mg/dl Creatinine 1.20 0.60-1.40 mg/dl Est Creatinine Clear Calc Drug Dose 70.9 ml/min Estimated GFR () 74.1 Estimated GFR (Non- 64.0 BUN/Creatinine Ratio 15.7 10-20 Random Glucose 146 70-99 mg/dl Calcium Level 8.8 8.5-10.1 mg/dl
[2017-03-14] MEDS: CEFTRIAXONE SOD INJ 2000 MG in DEXTROSE 5% 50ML IV SCH (12:46)
--- NOTE | 2017-03-14 14:17 | Infectious Disease Progress Nt ---
Progress Note Date of Service Mar 14, 2017. Subjective Pt evaluation today including: conversation w/ patient, physical exam, chart review, lab review, review of studies, conversation w/ technology consultant, review of inpatient medication list Patient feeling much better today, headache is essentially resolved. Remains afebrile. All cultures remain negative, Gram stain negative as well. All Other Systems: Reviewed and Negative Medications Current Inpatient Medications Medications (Trade) Dose Ordered Sig/Mary Route Start Time Stop Time Status Last Admin Dose Admin Dexamethasone Sodium Phosphate 10 mg/Syringe 2.5 ml @ 1 mls/min Q6H IV 03/13/17 07:00 04/12/17 06:59 03/14/17 13:10 1 MLS/MIN Acetaminophen (Tylenol Tab) 650 mg Q4H PRN PO 03/13/17 06:15 04/12/17 06:14 Ketorolac Tromethamine (Toradol Inj) 30 mg Q6H PRN IV 03/13/17 06:15 03/18/17 06:14 Ibuprofen (Advil Tab) 400 mg Q6H PRN PO 03/13/17 06:15 04/12/17 06:14 Oxycodone/ Acetaminophen (Percocet 5-325mg Tab) 1 tab Q6H PRN PO 03/13/17 06:15 03/27/17 06:14 Morphine Sulfate (MoRPHine SULFATE INJ) 4 mg Q3H PRN IV 03/13/17 06:15 03/27/17 06:14 Amlodipine Besylate (Norvasc Tab) 10 mg DAILY PO 03/13/17 12:00 04/12/17 11:59 03/14/17 09:26 10 MG Carvedilol (Coreg Tab) 6.25 mg BID PO 03/13/17 09:00 04/12/17 08:59 03/14/17 08:45 6.25 MG Doxazosin Mesylate (Cardura Tab) 8 mg HS PO 03/13/17 21:00 04/12/17 20:59 03/13/17 21:46 8 MG Fenofibrate (Tricor Tab) 145 mg DAILY PO 03/13/17 09:00 04/12/17 08:59 03/14/17 09:26 145 MG Lisinopril (Zestril Tab) 20 mg BID PO 03/13/17 09:00 04/12/17 08:59 03/14/17 08:45 20 MG Ondansetron HCl (Zofran Inj) 4 mg Q6H PRN IV 03/13/17 06:15 04/12/17 06:14 Ceftriaxone Sodium 2000 mg/ Dextrose 70 ml @ 140 mls/hr Q12H IV 03/13/17 22:00 03/23/17 21:59 03/14/17 12:46 140 MLS/HR Vancomycin HCl (Consult) 1 ea UD PRN N/A 03/13/17 10:00 04/12/17 09:59 Miscellaneous Information 1 ea UD PRN N/A 03/13/17 10:00 04/12/17 09:59 Vancomycin HCl 1400 mg/Sodium Chloride 528 ml @ 200 mls/hr Q10H IV 03/13/17 23:00 03/23/17 22:59 03/14/17 09:01 200 MLS/HR Objective Vital Signs Date Time Temp Pulse Resp B/P (MAP) Pulse Ox O2 Delivery O2 Flow Rate FiO2 03/14/17 08:00 95 Room Air 03/14/17 07:42 36.7 67 16 139/73 (95) 95 Room Air 03/14/17 00:00 Room Air 03/13/17 23:08 36.6 58 16 126/59 (81) 94 Room Air 03/13/17 16:10 Room Air 03/13/17 15:05 36.6 72 16 117/74 (88) 95 Room Air Physical Exam General Appearance: WD/WN, no apparent distress Eyes: normal inspection, EOMI, sclerae normal ENT: normal ENT inspection, pharynx normal Neck: supple, no adenopathy, trachea midline Respiratory/Chest: chest non-tender, lungs clear, normal breath sounds, no respiratory distress Cardiovascular: regular rate, rhythm, no gallop, no murmur Abdomen: normal bowel sounds, non tender, soft, no organomegaly Extremities: non-tender, no calf tenderness Neurologic/Psychiatric: alert, normal mood/affect, oriented x 3 Skin: normal color, warm/dry, no rash Lymphatic: no adenopathy Laboratory Results RUN DATE: 03/14/17 [facility] LAB PAGE 1 RUN TIME: 1118 Specimen Inquiry PATIENT: GOPI ZAMBRANO LOC: [id number] U # : [id number] AGE/SX: 61/M ROOM: [facility] REG : 03/13/[address]: Pooja. Lundberg S : 1955 BED: 1 DIS : STATUS: ADM IN TLOC: SPEC #: [id number] PETERSON: 03/13/17 STATUS: RES REQ #: [id number] RECD: 03/13/[address]: Vicente Lim PA- C SOURCE: CSF ENTR: 03/13/[address]: Madison Hensley D.O. SPDESC: Giovany King D.O. ORDERED: CSF CULT/SMR COMMENTS: Comments to Dark Room Attendant TUBE # 3 TUBE # TO USE FOR SPINAL FLUID CELL CULTURE= 3 Procedure Result Verified Site GRAM STAIN Final 03/13/17-0756 RESULT NO ORGANISMS SEEN MANY WBCs SEEN Phoned results to ANGIE ESCUDERO on 03/13/17 at 0434 by Chloe Ribera. Results were verbalized back to BERKLEY. CSF CULTURE Preliminary 03/14/17-1118 NO GROWTH TO DATE. Last 24 Hours Test 03/14/17 06:38 03/14/17 06:40 White Blood Count 16.15 K/uL Red Blood Count 3.85 M/uL Hemoglobin 11.7 g/dL Hematocrit 33.0 % Mean Corpuscular Volume 85.7 fL Mean Corpuscular Hemoglobin 30.4 pg Mean Corpuscular Hemoglobin Concent 35.5 g/dl RDW Standard Deviation 38.2 fL RDW Coefficient of Variation 12.2 % Platelet Count 244 K/uL Mean Platelet Volume 8.4 fL Sodium Level 138 mmol/L Potassium Level 3.9 mmol/L Chloride Level 110 mmol/L Carbon Dioxide Level 19 mmol/L Anion Gap 9.0 mmol/L Blood Urea Nitrogen 19 mg/dl Creatinine 1.20 mg/dl Est Creatinine Clear Calc Drug Dose 70.9 ml/min Estimated GFR () 74.1 Estimated GFR (Non- 64.0 BUN/Creatinine Ratio 15.7 Random Glucose 146 mg/dl Calcium Level 8.8 mg/dl Assessment and Plan Meningitis associated with CSF leak with negative cultures again. Given rapid clinical improvement and negative cultures, think Abx can be discontinued and patient can be discharged so can receive definitive treatment at [place]. Discussed with Dr. Lundberg.
[2017-03-14 14:42] VITALS: BP 139/73; PULSE 67; TEMP 36.7; O2SAT 95
--- NOTE | 2017-03-14 14:55 | Discharge Instructions ---
Discharge Instructions Date of Service Mar 14, 2017. Admission Reason for Admission: Meningitis Discharge Discharge Diagnosis / Problem: 1. CSF Leak 2. Possible viral meningitis Discharge Goals Goal(s): Improve disease control Activity Recommendations Activity Limitations: resume your previous activity . Instructions / Follow-Up Instructions / Follow-Up MEDICATION CHANGES : No changes in medications FOLLOW UP 1. Follow up with Dr Payan 03/17/17 at 2:45 PM 2. Follow up with Dr. Zacarias Briseno on Thursday as scheduled Current Hospital Diet Patient's current hospital diet: AHA Diet (Heart Healthy) Discharge Diet Recommended Diet: AHA Diet (Heart Healthy) Pending Studies Studies pending at discharge: no Medical Emergencies . Who to Call and When: Medical Emergencies: If at any time you feel your situation is an emergency, please call 911 immediately. . Non-Emergent Contact Non-Emergency issues call your: Primary Care Provider . . "Provider Documentation" section prepared by Ana Lundberg. . VTE Core Measure Inpt VTE Proph given/why not?: Breanna Ma, SCD's
--- NOTE | 2017-03-14 14:59 | Discharge Summary ---
Discharge Summary Date of Service Mar 14, 2017. Discharge Summary Admission Date: Mar 13, 2017 at 05:40 Discharge Date: Mar 14, 2017 Discharge Disposition: Home Principal Diagnosis: 1. 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 Possible viral meningitis Secondary Diagnoses/Problems: 1. HTN 2. CKD III Procedures: CT head IV Fluids IV antibiotics CSF analysis with cultures Consultations: ID Pending Studies/Follow-Up: . Instructions / Follow-Up Instructions / Follow-Up MEDICATION CHANGES : No changes in medications FOLLOW UP 1. Follow up with Dr Payan 03/17/17 at 2:45 PM 2. Follow up with Dr. Zacarias Briseno on Thursday as scheduled Medication Reconciliation Continued Medications: Amlodipine (Norvasc) 10 Mg Tab 10 MG PO DAILY, TAB Carvedilol (Coreg) 6.25 Mg Tab 1 TAB PO BID for 90 Days, #180 TAB 1 Refill Doxazosin Mesylate (Doxazosin Mesylate) 4 Mg Tab 8 MG PO DAILY Doxycycline (Monohydrate) (Doxycycline) 50 Mg Cap 50 MG PO DIRECTED PRN for RASH Fenofibrate (Tricor) 145 Mg Tab 145 MG PO DAILY, TAB Hydrochlorothiazide (Hctz) 25 Mg Tab 25 MG PO DAILY, TAB Lisinopril (Zestril) 20 Mg Tab 20 MG PO BID, TAB Newport-3 Fatty Acids (Newport-3) 1 Cap Cap 1000 MG PO DAILY Admission Information HPI (per Admitting provider): Patient known to have 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 Recent confinement March 2016 for meningitis following CSF leak attributed to tumor shrinkage following radiotherapy. CSF cultures no growth. Patient discharge on IV ceftriaxone course as per ID recommendation. Recent outpatient [facility] endocrinology follow-up visit last December 2016. October 2016 MRI showed decrease in tumor size by about 30%. Neurosurgery follow-up after one year with repeat MRI brain as per note. 2 weeks ago patient noted clear rhinorrhea on the left. similar to CSF leak symptoms in the past. No headaches no fever no chills. [facility] cloth tester quality requested for for collection of fluid for outpatient outpatient beta-2 transferrin testing for CSF. Positive result. [facility] Neurosurgery recommended MRI of the sella and follow-up appointment March 16. Yesterday, left rhinorrhea resolved.. Patient subsequently developed generalized headache symptoms similar to meningitis symptoms from March 2016. At the emergency room, IV vancomycin and ceftriaxone given for possible [employer] infection after LP done. Headache currently resolved as per patient. Physical Exam (per Admitting): General Appearance: + pertinent finding (psychiatric anxious, no respiratory distress) Eyes: + pertinent finding (pale palpebral conjunctivae, dry buccal mucosa) Neck: supple, + pertinent finding (short) Respiratory/Chest: lungs clear Cardiovascular: regular rate, rhythm Abdomen/GI: soft Extremities/Musculoskelatal: non-tender Neurologic/Psych: alert, + pertinent finding Skin: + pallor Hospital Course A 60-year-old male with history of pituitary macroadenoma status post radiation therapy in 2014, hypertension, CKD stage III presenting with headache. Patient was diagnosed with pituitary macroadenoma in 2013, had radiation rx in 2014. In March 2016, had CSF leak and later meningitis for which he was admitted at [facility]. Was treated with IV antibiotics x 10 days. Did well since than till few weeks ago when he again developed CSF leak. Did get tests done at [facility] which confirmed it was CSF leak and had MRI done yesterday, results still pending. Plan is to follow up with neurosurgery Dr Zacarias Briseno on Thursday to decide about further plan on basis of results of MRI. Yesterday got headaches and concerned about meningitis, thus came to ER for further evaluation POSSIBLE VIRAL MENINGITIS IN SETTING OF PITUITARY MACROADENOMA S/P Radiation for pituitary macroadenoma -->shrinkage --> CSF leak. -CSF Interpretation: cloudy, no xanthochromia, 948 white blood cells, less than 3,000 red blood cells, glucose 52, protein 69. -Headache resolved, no nuchal rigidity, fever, chills. Clinically no signs of meningitis and headache resolved within few hours of admission -Possible viral meningitis ? on basis of CSF results -Empirically on IV Vancomycin, Rocephin, IV Dexamethasone 10 mg q 6 hours (Day 2 ). [address] Dr Ruiz- no indication for antibiotics on discharge given the rapid clinical improvement and negative CSF cultures. -CSF cultures- no organisms, no growth, MRI Brain results (done at [facility] on )- New finding of pneumocephalus involving sella turcica, rt cavernous sinus, and supracellar cistern, consistent with known CSF leak involving floor of sella turcica/sphenoid roof. Grossly stable known residual pituitary macroadenoma invading right cavernous sinus, ant and post clinoid processess, and lt sphenoid sinus (asymmetrically large lt sphenoid sinus due to eccentric insertion of intersphenoid sinus septum over right carotid canal). -ID on board. Appreciate inputs PITUITARY MACROADENOMA: -Diagnosed in 2013, S/P Radiation in 2014 -Has had CSF leaks few times, last one few weeks ago which was confirmed to be CSF after testing. -MRI brain done at [facility] on 03/12- results as above. stable pituitary macroadenoma -Plan is to follow up with Dr. Zacarias Briseno (Neurosurgery at [facility]) on thursday re: Recurrent CSF leak and further treatment for macroadenoma) HTN- -Continue with amlodipine, carvedilol and lisinopril, Doxazosin, HCTZ CKD III -Stable CODE STATUS: FULL CODE DISPOSITION Ok to discharge home today. Discussed with ID and cleared for discharge to home. Follow up with Dr Zacarias Briseno (neurosurgery ) on thursday (at [facility]) Total time spent on discharge = 28 MINUTES This includes examination of the patient, discharge planning, medication reconciliation, and communication with other providers. Discharge Instructions Discharge Goals Goal(s): Improve disease control Activity Recommendations Activity Limitations: resume your previous activity . Instructions / Follow-Up Instructions / Follow-Up MEDICATION CHANGES : No changes in medications FOLLOW UP 1. Follow up with Dr Payan 03/17/17 at 2:45 PM 2. Follow up with Dr. Zacarias Briseno on Thursday as scheduled Current Hospital Diet Patient's current hospital diet: AHA Diet (Heart Healthy) Discharge Diet Recommended Diet: AHA Diet (Heart Healthy) Pending Studies Studies pending at discharge: no Medical Emergencies . Who to Call and When: Medical Emergencies: If at any time you feel your situation is an emergency, please call 911 immediately. . Non-Emergent Contact Non-Emergency issues call your: Primary Care Provider . . "Provider Documentation" section prepared by Ana Lundberg. . VTE Core Measure Inpt VTE Proph given/why not?: Breanna Ma, SCD's
[2017-03-15] MEDS ORDERED: VANCOMYCIN TROUGH SCH (04:30)
[2017-03-16 15:39] LABS: WEST NILE VIRUS PCR Not Detected (Not Detected)
[2017-03-18 09:07] LABS: LYME IGG CSF NO BANDS DETECTED; LYME IGM CSF NO BANDS DETECTED
== END 2017-03-14 15:50 | disposition home or self-care (01) | DRG 92 ==
LOC: C.EDB 23:36 → EDBEDREQ 03-13 05:23 → C.MS2W 03-13 05:40 → UNDOADMIN 03-13 05:40 → ENRESERV 03-13 05:46
PROVIDERS: ADMIT Internal Medicine; ATTEND Internal Medicine
DX: G96.0 Cerebrospinal fluid leak (principal); A87.9 Viral meningitis, unspecified; D35.2 Benign neoplasm of pituitary gland; N18.3 Chronic kidney disease, stage 3 (moderate); I12.9 Hypertensive chronic kidney disease with stage 1 through stage 4 chronic kidney disease, or unspecified chronic kidney disease; Z82.49 Family history of ischemic heart disease and other diseases of the circulatory system

== ENCOUNTER 2017-03-24 14:47 | Emergency (ER) | payer BC ==
[~2017-03-24] VITALS: Ht 177.8 cm; Wt 88.1 kg
[~2017-03-24 14:47] MED LIST changes: +DOXY50CA26 PO
[2017-03-24 14:49] VITALS: TEMP 36.5; Ht 177.8 cm; Wt 88.1 kg
[2017-03-24] MEDS ORDERED: HYDROmorphone INJ 1 MG/ML SYR IV STA ×2 (15:16→20:06)
[2017-03-24] MEDS ORDERED: ACETAMINOPHEN 500 MG TAB PO STA (15:16)
[2017-03-24] MEDS ORDERED: SODIUM CHLORIDE 0.9% 1000ML 1,000 ML IV ONE ×2 (15:30)
[2017-03-24 15:53] LABS: BASO % 0.2 %; BASO ABS # 0.02 K/uL (0-0.2); COMPLETE YES; EOS % 0.9 %; HEMATOCRIT 34.1 % (42-52); IG% 0.5 %; LYMPH % 6.9 %; LYMPH ABS # 0.85 K/uL (1.2-3.4); MEAN CELL VOLUME 87.9 fL (80-100); MEAN CORPUSCULAR HEMOGLOBIN 30.9 pg (25-34); MEAN CORPUSCULAR HGB CONC 35.2 g/dl (32-36); MEAN PLATELET VOLUME 8.4 fL (7.4-10.4); MONO % 6.8 %; NEUT % 84.7 %; PLATELET COUNT 270 K/uL (130-400); RED BLOOD COUNT 3.88 M/uL (4.7-6.1); WHITE BLOOD COUNT 12.29 K/uL (4.8-10.8)
[2017-03-24] MEDS ORDERED: VANCOMYCIN INJ 1,400 MG in SODIUM CHLORIDE 0.9% 500ML 500 ML IV STA (15:58)
[2017-03-24] MEDS ORDERED: CEFTRIAXONE SOD INJ 2,000 MG in DEXTROSE 5% 50ML 50 ML IV STA (15:58)
[2017-03-24] MEDS ORDERED: DEXAMETHASONE SOD INJ 10 MG/ML VIAL IV ONE (16:00)
--- NOTE | 2017-03-24 16:11 | DIAGNOSTIC IMAGING REPORT ---
CT SCAN OF THE BRAIN WITHOUT IV CONTRAST CLINICAL HISTORY: Headache. Reported history of meningitis and pituitary surgery. COMPARISON STUDY: CT of the brain dated 03/13/2017. MRI of the brain dated 04/11/2016. TECHNIQUE: Unenhanced axial CT scan of the brain is performed from the vertex to the skull base. Automated dose control exposure was utilized. A dose lowering technique was utilized adhering to the principles of ALARA. CT DOSE: 788.63 mGycm FINDINGS: Brain parenchyma: The brain parenchyma is normal in appearance. There are numerous small foci of pneumocephalus identified along the midline falx, in the basilar cisterns, and along the cortical sulci. Gas is greatest in the sellar/suprasellar region. This has increased from 03/13/2017. There is no air-fluid level within the sphenoid sinus. There is no hemorrhage, mass effect, or evidence of acute territorial ischemia by CT criteria. Soto-white matter is preserved. No extra-axial fluid collection is seen. Ventricles, sulci, cisterns: Normal in configuration. See above. Intracranial vasculature: The visualized intracranial vasculature at the skull base is normal in appearance. Calvarium: Unremarkable. Sinuses and mastoids: There is no air-fluid level within the sphenoid sinus. This is increased through 03/13/2017, and a bony defect is suggested along the right wall of the sinus. The remaining Visualized paranasal sinuses are clear. The mastoid air cells are well pneumatized. Orbits: The bony orbits are grossly intact. IMPRESSION: 1. There is no hemorrhage, mass effect, or evidence of acute territorial ischemia by CT criteria. 2. There are numerous small foci of pneumocephalus, which have increased from 03/13/2017. This is a nonspecific finding, but should should not be increasing unless there has been interval instrumentation. This could represent a communication with the sphenoid sinuses. This could also be seen in the setting of infection. Clinical correlation will be essential. Follow-up with the patient's neurosurgeon is advised. 3. There is increasing fluid within the sphenoid sinuses. A bony defect is suggested within the right lateral wall of the sphenoid sinus and may be related to previous surgery. Correlation the patient's surgical history will be required. Electronically signed by: Orestes Villar M.D. 03/24/2017 4:10 PM Dictated Date/Time: 03/24/2017 4:02 PM
[2017-03-24 16:18] LABS: BUN/CREATININE RATIO 17.5 (10-20); C-REACTIVE PROTEIN 7.63 mg/dl (0-0.29); CREATININE 1.3 mg/dl (0.60-1.40); POTASSIUM 4.1 mmol/L (3.5-5.1)
[2017-03-24 16:29] LABS: ALB/GLOB RATIO 0.8 (0.9-2); THYROID STIMULATING HORMONE 0.742 uIu/ml (0.300-4.500)
[2017-03-24] MEDS ORDERED: VANCOMYCIN INJ 2,250 MG in SODIUM CHLORIDE 0.9% 500ML 500 ML IV ONE (16:30)
[2017-03-24 17:17] LABS: LYME DISEASE AB IGG NEG (NEG); LYME DISEASE AB IGM NEG (NEG)
[2017-03-24 17:29] LABS: PARTIAL THROMBOPLASTIN RATIO 1.3; PROTHROMBIN TIME (PATIENT) 11.1 SECONDS (9.0-12.0)
--- NOTE | 2017-03-24 17:34 | EMERGENCY ROOM VISIT NOTE ---
History First contact with patient: 15:00 Chief Complaint: HEADACHE Stated Complaint: CSF LEAK, [place]OR[place] History of Present Illness The patient is a 61 year old male who presents to the Emergency Room with complaints of headache and chills worsening over the past 8-10 hours. The patient has a history of pituitary cancer and surgical intervention. Evidently this has led to an intermittent CSF leak. He is followed by neurosurgery in [facility] and has a surgical appointment in 6 days from now. The patient is concerned that he may have meningitis, as he has had meningitis twice in the past. This feels similar to those episodes of meningitis. He does have a generalized headache that he rates a 9/10. Bright light does bother his vision. He is not reporting distinct neck pain or chest pain. The patient has not taken anything [id number] for his symptoms. Review of Systems More than 10 systems were reviewed and otherwise negative with the exception of history of present illness. Past Medical/Surgical History Medical Problems: (1) Hypertension (2) Hypertriglyceridemia (3) Meningitis Family History Heart disease FATHER Hypertension FATHER MOTHER Social History Smoking Status: Never Smoker Alcohol Use: occasionally Drug Use: none Marital Status: Housing Status: lives with family Occupation Status: employed, other Current/Historical Medications Scheduled Amlodipine (Norvasc), 10 MG PO DAILY Carvedilol (Coreg), 1 TAB PO BID Doxazosin Mesylate (Doxazosin Mesylate), 8 MG PO DAILY Fenofibrate (Tricor), 145 MG PO DAILY Hydrochlorothiazide (Hctz), 25 MG PO DAILY Lisinopril (Zestril), 20 MG PO BID Damascus-3 Fatty Acids (Damascus-3), 1,000 MG PO DAILY Scheduled PRN Doxycycline (Monohydrate) (Doxycycline), 50 MG PO DIRECTED PRN for RASH Physical Exam Vital Signs Date Time Temp Pulse Resp B/P (MAP) Pulse Ox O2 Delivery O2 Flow Rate FiO2 03/24/17 21:05 72 20 146/85 97 03/24/17 20:00 67 18 144/80 98 Room Air 03/24/17 18:00 77 20 132/75 95 Room Air 03/24/17 16:52 72 16 136/69 94 Room Air 03/24/17 14:49 36.5 98 18 145/89 95 Room Air Physical Exam VITALS: Vitals are noted on the nurse's note and reviewed by myself. Vital signs stable. GENERAL: Well-developed, well-nourished, white male who is in mild to moderate discomfort secondary to his stated complaint. He is resting in a darkened emergency department room. Patient is cooperative with the examination. EARS: External ear normal. External auditory canals clear, tympanic membranes pearly soto without erythema or effusion bilaterally. EYES: Pupils equal round and reactive to light and accommodation. Conjunctivae without injection, sclerae without icterus. Extraocular movements intact. NOSE: Patent without obvious drainage or discharge MOUTH: Mucous membranes moist. Tonsils are not enlarged. Pharynx without erythema, blood, or exudate. Uvula midline. Airway patent. NECK: Supple without nuchal rigidity. No lymphadenopathy. No thyromegaly. Cervical spine is nontender. HEART: Regular rate and rhythm without murmurs gallops or rubs. LUNGS: Clear to auscultation bilaterally without wheezes, rales or rhonchi. No retractions or accessory muscle use. MUSCULOSKELETAL: No muscle atrophy, erythema, or edema noted. Full range of motion without joint tenderness in all extremities. No tenderness to palpation. Normal gait. Strength 5/5 throughout. NEURO: Patient was alert and oriented to person place and time. CN II through XII grossly intact. Medical Decision & Procedures ER Provider Diagnostic Interpretation: CT SCAN OF THE BRAIN WITHOUT IV CONTRAST CLINICAL HISTORY: Headache. Reported history of meningitis and pituitary surgery. COMPARISON STUDY: CT of the brain dated 03/13/2017. MRI of the brain dated 04/11/2016. TECHNIQUE: Unenhanced axial CT scan of the brain is performed from the vertex to the skull base. Automated dose control exposure was utilized. A dose lowering technique was utilized adhering to the principles of ALARA. CT DOSE: 788.63 mGycm FINDINGS: Brain parenchyma: The brain parenchyma is normal in appearance. There are numerous small foci of pneumocephalus identified along the midline falx, in the basilar cisterns, and along the cortical sulci. Gas is greatest in the sellar/suprasellar region. This has increased from 03/13/2017. There is no air-fluid level within the sphenoid sinus. There is no hemorrhage, mass effect, or evidence of acute territorial ischemia by CT criteria. Soto-white matter is preserved. No extra-axial fluid collection is seen. Ventricles, sulci, cisterns: Normal in configuration. See above. Intracranial vasculature: The visualized intracranial vasculature at the skull base is normal in appearance. Calvarium: Unremarkable. Sinuses and mastoids: There is no air-fluid level within the sphenoid sinus. This is increased through 03/13/2017, and a bony defect is suggested along the right wall of the sinus. The remaining Visualized paranasal sinuses are clear. The mastoid air cells are well pneumatized. Orbits: The bony orbits are grossly intact. IMPRESSION: 1. There is no hemorrhage, mass effect, or evidence of acute territorial ischemia by CT criteria. 2. There are numerous small foci of pneumocephalus, which have increased from 03/13/2017. This is a nonspecific finding, but should should not be increasing unless there has been interval instrumentation. This could represent a communication with the sphenoid sinuses. This could also be seen in the setting of infection. Clinical correlation will be essential. Follow-up with the patient's neurosurgeon is advised. 3. There is increasing fluid within the sphenoid sinuses. A bony defect is suggested within the right lateral wall of the sphenoid sinus and may be related to previous surgery. Correlation the patient's surgical history will be required. Laboratory Results 03/24/17 15:38 Red Blood Count 3.88, Mean Corpuscular Volume 87.9, Mean Corpuscular Hemoglobin 30.9, Mean Corpuscular Hemoglobin Concent 35.2, Mean Platelet Volume 8.4, Neutrophils (%) (Auto) 84.7, Lymphocytes (%) (Auto) 6.9, Monocytes (%) (Auto) 6.8, Eosinophils (%) (Auto) 0.9, Basophils (%) (Auto) 0.2, Neutrophils # (Auto) 10.42, Lymphocytes # (Auto) 0.85, Monocytes # (Auto) 0.83, Eosinophils # (Auto) 0.11, Basophils # (Auto) 0.02 03/24/17 15:38 Test 03/24/17 15:16 03/24/17 15:38 Prothrombin Time 11.1 SECONDS (9.0-12.0) Prothromb Time International Ratio 1.0 (0.9-1.1) Activated Partial Thromboplast Time 34.3 SECONDS (21.0-31.0) Partial Thromboplastin Ratio 1.3 White Blood Count 12.29 K/uL (4.8-10.8) Red Blood Count 3.88 M/uL (4.7-6.1) Hemoglobin 12.0 g/dL (14.0-18.0) Hematocrit 34.1 % (42-52) Mean Corpuscular Volume 87.9 fL (80-100) Mean Corpuscular Hemoglobin 30.9 pg (25-34) Mean Corpuscular Hemoglobin Concent 35.2 g/dl (32-36) Platelet Count 270 K/uL (130-400) Mean Platelet Volume 8.4 fL (7.4-10.4) Neutrophils (%) (Auto) 84.7 % Lymphocytes (%) (Auto) 6.9 % Monocytes (%) (Auto) 6.8 % Eosinophils (%) (Auto) 0.9 % Basophils (%) (Auto) 0.2 % Neutrophils # (Auto) 10.42 K/uL (1.4-6.5) Lymphocytes # (Auto) 0.85 K/uL (1.2-3.4) Monocytes # (Auto) 0.83 K/uL (0.11-0.59) Eosinophils # (Auto) 0.11 K/uL (0-0.5) Basophils # (Auto) 0.02 K/uL (0-0.2) RDW Standard Deviation 40.5 fL (36.4-46.3) RDW Coefficient of Variation 12.6 % (11.5-14.5) Immature Granulocyte % (Auto) 0.5 % Immature Granulocyte # (Auto) 0.06 K/uL (0.00-0.02) Erythrocyte Sedimentation Rate 67 mm/hr (0-14) Anion Gap 8.0 mmol/L (3-11) Est Creatinine Clear Calc Drug Dose 65.0 ml/min Estimated GFR () 67.3 Estimated GFR (Non- 58.1 BUN/Creatinine Ratio 17.5 (10-20) Lactic Acid Level 0.6 mmol/L (0.4-2.0) Calcium Level 9.0 mg/dl (8.5-10.1) Total Bilirubin 0.4 mg/dl (0.2-1) Aspartate Amino Transf (AST/SGOT) 15 U/L (15-37) Alanine Aminotransferase (ALT/SGPT) 36 U/L (12-78) Alkaline Phosphatase 54 U/L (45-117) C-Reactive Protein 7.63 mg/dl (0-0.29) Total Protein 7.5 gm/dl (6.4-8.2) Albumin 3.3 gm/dl (3.4-5.0) Globulin 4.2 gm/dl (2.5-4.0) Albumin/Globulin Ratio 0.8 (0.9-2) Thyroid Stimulating Hormone (TSH) 0.742 uIu/ml (0.300-4.500) Lyme Disease IgG Antibody NEG (NEG) Lyme Disease IgM Antibody NEG (NEG) Medications Administered Medications (Trade) Dose Ordered Sig/Mayr Route Start Time Stop Time Status Last Admin Dose Admin Sodium Chloride 1,000 ml @ 999 mls/hr Q1H1M ONCE IV 03/24/17 15:30 03/24/17 16:30 DC 03/24/17 15:46 999 MLS/HR Hydromorphone HCl (Dilaudid Inj) 1 mg NOW STAT IV 03/24/17 15:16 03/24/17 15:20 DC 03/24/17 15:46 1 MG Acetaminophen (Tylenol Tab) 1,000 mg NOW STAT PO 03/24/17 15:16 03/24/17 15:20 DC 03/24/17 15:46 1,000 MG Sodium Chloride 1,000 ml @ 999 mls/hr Q1H1M ONCE IV 03/24/17 15:30 03/24/17 16:30 DC 03/24/17 15:47 999 MLS/HR Hydromorphone HCl (Dilaudid Inj) 1 mg NOW STAT IV 03/24/17 20:06 03/24/17 20:07 DC 03/24/17 20:30 1 MG ED Course Physical exam and history were performed. Nursing notes, EMR, and Medication List were personally reviewed. Patient appears to have a worsening headache over the past several hours. The patient was seen previously at this facility and diagnosed with meningitis. He has since followed with [facility] neurosurgery in [place]. The patient states that he has had 2 previous episodes of meningitis, and this symptomatology today feels nearly identical to those previous episodes. IV access was established and labs were obtained. The patient was hydrated with normal saline. He was given 1 mg IV Dilaudid and [address] scan of the head was ordered. He was placed under contact precautions and monitor closely under our care. The case was discussed with my attending physician, Dr Washington, who independently evaluated the patient and remained closely involved in patient care and decision making. The patient's blood work is as above and was reviewed. He does have an elevated white blood cell count as well as elevated inflammatory markers. This is concerning for infection. The patient CT scan does not show evidence of bleed, but does show worsening pneumocephalus when compared to CT scan performed about 10 days ago at this facility. The patient did have improvement of his pain after IV pain medication. Dr Washington spoke with the [facility] neurosurgical service at [place] regarding the patient. The recommendation at this time is to transfer the patient to [place]. The neurosurgical service did not wish for us to begin antibiotics or perform a lumbar puncture at this time. This recommendation was discussed with the patient and his family, and they are willing to be transferred to [facility]. Appropriate consents were performed. The patient remained in stable condition throughout the remainder of his ER stay, and was transferred via ALS ambulance. The chart was completed utilizing [employer] Speech Voice Recognition Software. Grammatical errors, random word insertions, pronoun errors, and incomplete sentences are an occasional consequence of this system due to software limitations, ambient noise, and hardware issues. Any formal questions or concerns about the content, text, or information contained within the body of this dictation should be directly addressed to the provider for clarification. . Medical Decision The differential diagnosis includes, but is not limited to: acute intracranial bleed, meningitis, encephalitis, mass or mass effect, sinusitis, infection, tumor, headache, temporal arteritis and carbon monoxide exposure, and migraine. Head Trauma GCS Score: 15 Medication Reconcilliation Current Medication List: was personally reviewed by me Blood Pressure Screening Blood pressure disposition: Elevated BP felt to be situational Impression Primary Impression: Pneumocephalus Additional Impressions: Headache Leukocytosis Departure Information Referrals Giovany King D.O. (PCP) Patient Instructions My [facility] Problem Qualifiers
--- NOTE | 2017-03-24 20:23 | EMERGENCY ROOM VISIT NOTE ---
ED Visit Note First contact with patient: 15:00 The patient was seen and examined with Vicente Lim PA-C. I agree with the history, physical and findings. Please see the note for disposition and details. The patient has pneumocephalus and will be in need of neurosurgery evaluation. Emergent neurosurgical consultation warranted. Lumbar puncture tray and antibiotics ordered bedside pending results of CT imaging. CT revealed significant pneumocephalus. He has a leukocytosis. I spoke with Dr. Escobar, [facility] [place] neurosurgery at 1630 about the patient. They state that we should hold off on the lumbar puncture and antibiotics for now. He will call Dr. Briseno of [facility] Neurosurgery, the patient's personal neurosurgeon and Dr. Escobar partner. I spoke with the transfer center at 1713. They would like the patient to be at [facility]. l asked Neurosurgery again if they would like a lumbar puncture and antibiotics administered and they want this deferred until he arrives at [facility] [place] [place]. I spoke with the patient at 1720. He agrees with transfer and would not like anything else for pain. Medical command transfer paperwork completed. Imaging burnt to a disc. IMPRESS: Pneumocephalus, headache, and leukocytosis. DISPOSITION: Transfer to [facility] Neurosurgery. 191: [facility] just found a bed for the patient.
[2017-03-24 21:05] VITALS: BP 146/85; PULSE 72; O2SAT 97
== END 2017-03-24 21:00 | disposition short-term general hospital (02) ==
LOC: C.EDB 14:48 → C.EDA 21:00
DX: G93.89 Other specified disorders of brain (principal); R51 Headache; D72.829 Elevated white blood cell count, unspecified; I10 Essential (primary) hypertension; E78.1 Pure hyperglyceridemia; Z82.49 Family history of ischemic heart disease and other diseases of the circulatory system; Z79.899 Other long term (current) drug therapy